=== PATIENT | female | born 1960 | race Caucasian/White ===

== ENCOUNTER → 2016-09-08 | Outpatient (CLI) | payer OTHER ==
[~2016-09-08] MED LIST: A/T/S 2% GEL30 GM TOP; AUGMENTIN PO; NO MEDICATIONS; VICODIN 5/500 T1 TAB PO
--- NOTE | ~2016-09-08 | MY11 ---
[facility] RADIOLOGY TEXT RESULTS PATIENT: MINNIE MADDEN LOCATION: [facility] : 60 UNIT #: [id number] AGE: [address]: Agustina Pantoja MD SEX: F ORDER DR: [id number] [place] [id number] MR#: [id number] Acc #: [id number] NAME: MINNIE MADDEN : 1960 SEX: F STUDY DATE/TIME: 09/08/2016 11:48 UNIT: [facility] ROOM: STUDY DESCRIPTION: MY Mammogram Screening Dig Marc Attending Physician: Kendy Pantoja M.D. Referring Physician: Kendy Pantoja M.D. Ordering Physician: Kendy Pantoja M.D. Primary Care Physician: Shabbir Fermin M.D. MEDICAL IMAGING REPORT This report is preliminary unless electronic signature is present. EXAM Digital screening mammogram 09/08/2016 [facility] HISTORY 56-year-old woman no risk elevation. Prior excisional left breast biopsy. New baseline. COMPARISON: None. Previous mammogram 1989. FINDINGS Digital imaging of each breast was completed utilizing screening protocol. Review includes FDA-approved CAD device. Breast parenchyma is moderately dense with fibroglandular parenchymal pattern. There is no dominant breast mass. There are no suspicious microcalcifications and no architectural deformity. IMPRESSION Negative baseline mammogram. Annual screening recommended. Patients over the age of 40 are entered into a reminder system with target due date for the next mammogram. A result letter will also be sent to the patient. BIRADS: 1 - negative n Dictated by... Dillon Bone M.D. [facility] RADIOLOGY TEXT RESULTS PATIENT: MINNIE MADDEN LOCATION: [facility] : 60 UNIT #: [id number] AGE: [address]: Agustina Pantoja MD SEX: F ORDER DR: THIS IS AN ELECTRONICALLY VERIFIED REPORT Dillon Bone M.D. at 09/08/2016 3:22 PM ELIDA/suyapa TD: 09/08/2016 14:39 JOB #: [id number] MEDICAL IMAGING REPORT Page 1 of 1
== END | disposition home or self-care (01) ==
LOC: SMAM 11:04
DX: Z12.31 Encounter for screening mammogram for malignant neoplasm of breast (principal); Z98.890 Other specified postprocedural states
CPT/HCPCS: G0202